=== PATIENT | female | born 1950 | race Caucasian/White ===

== ENCOUNTER 2018-08-29 09:50 | Inpatient (IN) | payer OTHER ==
[~2018-08-29] VITALS: Ht 167.6 cm; Wt 56.1 kg
[~2018-08-29 09:50] MED LIST: ACID REDUCER 1150 MG PO; ADIPEX; ASPI325 PO; ATOR10 PO; Adipex-P37.5 M1 PO; Adipex-P37.5 MG PO; CHOL10002 PO; CLOP75 PO; CYCL10 PO; ERGO400 PO; FLUO10 PO; GLIP5ER PO; HYDACE5 PO; LETR2.5 PO; LISI10 PO; LISI5 PO; LORA1 PO; METF500 PO; METO10 PO; Motion Sickness25 M1 PO; NAPR220 PO; NITR100 PO; Omeprazole20 M1 PO; PANT40 PO; PRED20 PO; RXCYCL10 PO; SITA100T2 PO; SPIR50 PO; VIIBRYD10 MG PO
[2018-08-29] MEDS ORDERED: METF500C PO (10:29)
[2018-08-29] MEDS ORDERED: SPIR25 PO (10:29)
[2018-08-29] MEDS ORDERED: CLOP75 PO (10:29)
[2018-08-29] MEDS ORDERED: CHOL10002 PO (10:30)
[2018-08-29] MEDS ORDERED: LETR2.5 PO (10:30)
[2018-08-29] MEDS ORDERED: PANT40 PO (10:30)
[2018-08-29] MEDS ORDERED: TYLENOL325 MG PO (10:31)
[2018-08-29 11:08] LABS: BASOPHILS ABSOLUTE AUTO 0.06 K/mm3 (0.00-0.23); BASOPHILS PERCENT AUTO 0 % (0-2); EOSINOPHILS ABSOLUTE AUTO 0.11 K/mm3 (0.00-0.68); EOSINOPHILS PERCENT AUTO 1 % (0-6); Hemoglobin 13.7 g/dL (11.5-16.0); IMMATURE GRAN ABSOLUTE AUTO 0.08 K/mm3 (0.00-0.10); IMMATURE GRAN PERCENT AUTO 1 % (0-1); LYMPHOCYTES ABSOLUTE AUTO 1.83 K/mm3 (0.84-5.20); LYMPHOCYTES PERCENT AUTO 11 % (21-46); MONOCYTES ABSOLUTE AUTO 1.13 K/mm3 (0.16-1.47); MONOCYTES PERCENT AUTO 7 % (4-13); Mean Corpuscular HGB Conc 32.6 g/dL (31.5-36.5); Mean Corpuscular Volume 92 fL (80-100); Mean Platelet Volume 10.1 fL (9.1-12.4); NEUTROPHILS ABSOLUTE AUTO 12.89 K/mm3 (1.96-9.15); NEUTROPHILS PERCENT AUTO 80 % (41-73); Platelet Count 276 K/mm3 (150-400); RDW Coefficient Variation 13.4 % (11.7-14.2); RDW Standard Deviation 45.5 fL (35.1-46.3); Red Blood Cell Count 4.57 M/mm3 (3.80-5.20)
[2018-08-29 11:19] LABS: Alanine Aminotransfer (ALT/SGP 35 U/L (12-78); Albumin/Globulin Ratio 0.8 (0.8-1.8); Alk Phos 87 U/L (50-136); Anion Gap 9 mmol/L (6-16); Aspartate Aminotrans (AST/SGOT 30 U/L (12-37); Bilirubin, Total 0.4 mg/dL (0.1-1.0); Blood Urea Nitrogen 36 mg/dL (8-24); CO2, Blood 20 mmol/L (21-32); Calcium, Blood 9.6 mg/dL (8.5-10.1); Chloride, Blood 104 mmol/L (98-108); Creatinine, Blood 0.97 mg/dL (0.40-1.00); Glomerular Filtration Rate >60 (60-); Glucose, Blood 90 mg/dL (70-99); Potassium, Blood 4.5 mmol/L (3.5-5.5); Sodium, Blood 133 mmol/L (136-145)
[2018-08-29 11:58] LABS: Source, Urine Clean Catch
[2018-08-29 12:08] LABS: Appearance, Urine Bloody (Clear); Bilirubin, Urine Neg (Neg); Blood, Urine 4+ (Neg); Color, Urine Red (P-Yellow); Glucose Qualitative, Urine Neg (Neg); Ketones, Urine 1+ (Neg); Nitrite, Urine Neg (Neg); Protein, Urine 4+ (Neg); Specific Gravity, Urine 1.015 (1.003-1.022); Urobilinogen, Urine NORM (Normal)
[2018-08-29 12:31] LABS: Leukocyte Esterase, Urine 3+ (Neg)
[2018-08-29 12:32] LABS: Bacteria Many /hpf; Red Blood Cells, Urine TNTC /hpf (0-2); Squamous Epithelial Cells Few /hpf (Few); White Blood Cells, Urine TNTC /hpf (0-5)
--- NOTE | 2018-08-29 18:43 | NUR ---
SHIFT SUMMARY PATIENT IS NONAMBULATORY AND NONVERBAL. SHE CANNOT USE HER CALL BUTTON AND NEEDS FREQUENT ROUNDING. SHE IS A FULL CODE AND HAS BLOOD DRAINING FROM HER URINE. CT OF HER ABDOMEN WAS NEGATIVE, AND WILL ASSESS FOR ANY CHANGES. THEY HAVE PLACED HER ON GENATMYCIN AND FLUIDS TO RULE OUT SEPSIS, HER WHITE COUNT IS MILDLY ELEVATED.
[2018-08-29 21:28] LABS: Gentamicin, Peak 27.1 ug/mL (4.0-8.0)
[2018-08-30 04:55] LABS: BASOPHILS ABSOLUTE AUTO 0.04 K/mm3 (0.00-0.23); BASOPHILS PERCENT AUTO 0 % (0-2); EOSINOPHILS PERCENT AUTO 1 % (0-6); Hematocrit 37.6 % (33.0-51.0); IMMATURE GRAN ABSOLUTE AUTO 0.08 K/mm3 (0.00-0.10); IMMATURE GRAN PERCENT AUTO 1 % (0-1); LYMPHOCYTES ABSOLUTE AUTO 1.79 K/mm3 (0.84-5.20); LYMPHOCYTES PERCENT AUTO 20 % (21-46); MONOCYTES ABSOLUTE AUTO 0.84 K/mm3 (0.16-1.47); MONOCYTES PERCENT AUTO 9 % (4-13); Mean Corpuscular HGB 29.5 pg (26.0-34.0); Mean Corpuscular HGB Conc 31.9 g/dL (31.5-36.5); Mean Corpuscular Volume 92 fL (80-100); Mean Platelet Volume 10.2 fL (9.1-12.4); NEUTROPHILS PERCENT AUTO 69 % (41-73); Platelet Count 225 K/mm3 (150-400); RDW Coefficient Variation 13.3 % (11.7-14.2); RDW Standard Deviation 45.1 fL (35.1-46.3); Red Blood Cell Count 4.07 M/mm3 (3.80-5.20); White Blood Cell Count 9.15 K/mm3 (4.00-11.30)
[2018-08-30 05:16] LABS: Anion Gap 9 mmol/L (6-16); Blood Urea Nitrogen 24 mg/dL (8-24); Bun/Creatinine Ratio 26.5 (12.0-20.0); CO2, Blood 23 mmol/L (21-32); Calcium, Blood 9.2 mg/dL (8.5-10.1); Chloride, Blood 106 mmol/L (98-108); Creatinine, Blood 0.91 mg/dL (0.40-1.00); Glomerular Filtration Rate >60 (60-); Glucose, Blood 119 mg/dL (70-99); Potassium, Blood 3.8 mmol/L (3.5-5.5); Sodium, Blood 138 mmol/L (136-145)
--- NOTE | 2018-08-30 08:12 | NUR ---
*SHIFT SUMMARY* PATIENT NODS YES AND NO TO QUESTIONS. PATIENT NODDED NO TO HAVING PAIN. PATIENT REPOSITIONED THROUGHOUT THE NIGHT. ALBARADO DRAINING, RED URINE. INCONTINENT OF STOOL. VITAL SIGNS STABLE. BED LOWERED AND LOCKED WITH CALL LIGHT IN REACH.
--- NOTE | 2018-08-30 16:36 | NUR ---
PATIENT CARE PERMISSION PATIENT NODDED YES WHEN ASKED IF I COULD PROVIDE CARE FOR HER TOMORROW AND ACCESS HER CHART
--- NOTE | 2018-08-30 16:37 | NUR ---
Visit with patient she denie headaches, minimal pain and aching to back, pt anseres questions but drifts off and stares. she has hiccups and states having them more and more intensity. advised nursing and physician. Nursing states pt refusing most things. pt states no appetite. opened her window to see the snow she enjoyed the experience. pt nusre states son is primaryliy involved in her care the daughter helps. will contact daughter for polst and plan of care.
--- NOTE | 2018-08-30 17:24 | NUR ---
SHIFT SUMMARY NO ACUTE CONCERNS FOR PATIENT AT THIS TIME. BLOOD STILL DRAINING IN THE CATHETER. PATIENTS ALBARADO IS PATENT AT THIS TIME. WE AHVE PRN BLADDER SCAN ORDERS FOR THE PATIENT TO ASSESS FOR PATENCY OF THE ALBARADO.
--- NOTE | 2018-08-30 22:40 | NUR ---
PATIENT COMPLAINING OF 10/10 PAIN IN HER ABDOMEN/BLADDER AREA. PATIENT IS RESTLESS IN BED, TURNING FROM ONE SIDE OF BED TO THE OTHER. PATIENT HAS STOOL ON HER HAND. LISSETT AND THIS NURSE STARTED [facility]. IT WAS THEN NOTED THAT THE PATIENTS BRIEF HAD A MODERATE AMOUNT OF BLOOD THAT APPEARED TO BE COMING FROM PATIENTS VAGINA. IT WAS A STEADY TRICKLE OF LISETH RED BLOOD, THERE WAS ALSO CLOTS IN THE BRIEF OF DARK BLOOD. PATIENT HAD A LARGE SOFT BOWEL MOVEMENT WELL THAT DID NOT APPEAR TO HAVE BLOOD IN IT. LISSETT REPORTED TO ME AT THIS TIME THAT SHE HAD JUST PREVIOUSLY DRAINED PATIENT'S ALBARADO CATHETER THAT HAD 800ML OF CRANBERRY COLORED BLOOD. THIS RN CALLED HOSPITALIST AND RECIEVED AN ORDER FOR ONE TIME DOSE OF PEPCID IV, WELL A STAT H&H. HOSPITALIST REQUESTED TO BE NOTIFIED OF RESULTS OF H&H TO DECIDE FURTHER TREATMENT.
[2018-08-30 23:40] LABS: Hematocrit 36.1 % (33.0-51.0); Hemoglobin 11.8 g/dL (11.5-16.0)
--- NOTE | 2018-08-31 | NUR ---
PATIENT MEDICATED ORDERED AND LABS DRAWN. PATIENT IS STILL COMPLAINING OF 10/10 PAIN. CHECKED PATIENT'S BRIEF AND THE PAD IS SATURATED IN BOTH LISETH RED AND DARK CLOTS OF BLOOD. H&H RESULTS ARE BACK. CALLED HOSPITALIST AND UPDATED HIM ON PATIENT'S CURRENT STATUS. AT THIS TIME THE HOSPITALIST ORDERED FENTANYL ONE TIME. HE WANTS NURSING STAFF TO CHECK FOR SIGNS OF ALLERGIC REACTION TO THIS MEDICINE SINCE PT HAS A LOT OF MEDICATION ALLERGIES. IF NO ALLERGIC REACTION IS NOTED WE CAN CALL AND RECIEVE AN ORDER FOR PRN DOSING.
--- NOTE | 2018-08-31 02:02 | NUR ---
PATIENT'S ALBARADO CATHETER WAS NOT SHOWING MUCH DRAINAGE. THIS RN REQUESTED FLAT SHEET MAKER TO BLADDER SCAN PATIENT. FLAT SHEET MAKER REPORTED FLAT SHEET MAKER HAD 725ML IN BLADDER. THIS RN CALLED HOSPITALIST AGAIN TO NOTIFY CURRENT STATUS. AT 0115 NEW ORDER FOR 3-WAY CATHETER RECIEVED AND INTERMITTEN IRRIGATION. 18FR 3-WAY CATH PLACED, IRRIGATED ALBARADO WITH 40ML OF NS. CATHETER DRAINING WHAT APPEARS TO BE DARK VELA RED BLOOD. 950MLS OF URINE HAVE BEEN DRAINED WITHIN 15MINS OF CATHETER INSERTION. PATIENT STATES PAIN HAS DECREASED SOME. FACIAL REDNESS HAS DECREASED.
--- NOTE | 2018-08-31 02:25 | NUR ---
INSERTED 3-WAY ALBARADO SIZE 18FR. ASSISTED BY CHARGE NURSE REAL Yun REMOVED PREVIOUS ALBARADO, CATH INTACT UPON REMOVAL.
[2018-08-31 04:59] LABS: BASOPHILS ABSOLUTE AUTO 0.04 K/mm3 (0.00-0.23); BASOPHILS PERCENT AUTO 0 % (0-2); EOSINOPHILS ABSOLUTE AUTO 0.04 K/mm3 (0.00-0.68); EOSINOPHILS PERCENT AUTO 0 % (0-6); Hematocrit 32.1 % (33.0-51.0); IMMATURE GRAN ABSOLUTE AUTO 0.13 K/mm3 (0.00-0.10); IMMATURE GRAN PERCENT AUTO 1 % (0-1); LYMPHOCYTES ABSOLUTE AUTO 1.14 K/mm3 (0.84-5.20); LYMPHOCYTES PERCENT AUTO 6 % (21-46); MONOCYTES ABSOLUTE AUTO 1.19 K/mm3 (0.16-1.47); MONOCYTES PERCENT AUTO 7 % (4-13); Mean Corpuscular HGB 29.2 pg (26.0-34.0); Mean Corpuscular HGB Conc 31.2 g/dL (31.5-36.5); Mean Corpuscular Volume 94 fL (80-100); Mean Platelet Volume 10.2 fL (9.1-12.4); NEUTROPHILS ABSOLUTE AUTO 15.57 K/mm3 (1.96-9.15); NEUTROPHILS PERCENT AUTO 86 % (41-73); Platelet Count 220 K/mm3 (150-400); RDW Coefficient Variation 13.5 % (11.7-14.2); RDW Standard Deviation 46.5 fL (35.1-46.3); Red Blood Cell Count 3.42 M/mm3 (3.80-5.20); White Blood Cell Count 18.11 K/mm3 (4.00-11.30)
[2018-08-31 05:11] LABS: Anion Gap 10 mmol/L (6-16); Blood Urea Nitrogen 19 mg/dL (8-24); Bun/Creatinine Ratio 23.5 (12.0-20.0); CO2, Blood 19 mmol/L (21-32); Calcium, Blood 8.6 mg/dL (8.5-10.1); Chloride, Blood 111 mmol/L (98-108); Creatinine, Blood 0.81 mg/dL (0.40-1.00); Glomerular Filtration Rate >60 (60-); Glucose, Blood 302 mg/dL (70-99); Potassium, Blood 4.7 mmol/L (3.5-5.5); Sodium, Blood 140 mmol/L (136-145)
--- NOTE | 2018-08-31 05:14 | NUR ---
*SHIFT SUMMARY* PATIENT HAS BEEN ALERT DURING SHIFT AND ANSWERING QUESTIONS APPROPRIATELY. INSERTED A 3-WAY CATHETER AND REMOVED PREVIOUS ALBARADO, SEE PREVIOUS NOTES FOR MORE DETAILS. PAIN HAS DECREASED FROM FENTANYL. ON ROOM AIR. CALL LIGHT IN REACH, BED LOWERED AND LOCKED. VITAL SIGNS WERE STABLE OTHER THAN BLOOD PRESSURE WAS ELEVATED AT 0211, COULD BE FROM THE PAIN IN BLADDER FROM 725ML OF URINE IN BLADDER. BLOOD PRESSURE RECHECK HAS LOWERED. CALLED HOSPITALIST AT 0530 TO INFORM ABOUT THE CURRENT STATUS OF THE DARK VELA RED BLOOD STILL DRAINING FROM BLADDER AND THAT PATIENT'S PAIN IS INCREASING AGAIN. NO NEW ORDERS OBTAINED.
--- NOTE | 2018-08-31 11:53 | NUR ---
Patient has given me permission to help with her care tomorrow (09/01/18).
[2018-08-31 13:15] LABS: Hematocrit 31.3 % (33.0-51.0)
[2018-08-31 14:37] LABS: Gentamicin, Random 0.5 ug/Ml
--- NOTE | 2018-08-31 14:42 | NUR ---
Palliative Care visit: Reviewed EMR and checked in with RN for current clinical update. Pt admitted for acute hemorrhagic cystitis. RN states pt was complaining of lower abd pain this am but after bladder irrigation and flush of blood and clots decreased pain reported. Currently pt's jay cath is set up to cont. irrig and jay drainage bag with light pink urine noted. Assessed pt for s/s. She denies pain. I did not note any nonverbal indicators of pain, anxiety, agitation or distress. Pt is confused. She knows her name but reports to me, "I had my appendix taken out today". Opened pt's blinds and positioned tv so she could look at it after asking her if she would like me to and received afirmative answer. Pt enjoyed view of beautiful xavi day outside. I attempted to call pt's son and left VM with request for return call to touch bases regarding his mom's care. Would like to review code status and complete a POLST if he is interested in doing that. Will try again tomorrow if no return call received.
--- NOTE | 2018-08-31 17:47 | NUR ---
SHIFT SUMMARY TODAY THIS PATIENT ALBARADO WAS NOT DRAINING. THIS RN WITH THE HELP OF DENIZ WASHBURN, MARKETING LEAD MANUALLY IRRIGATED BLADDER. SPOKE WITH PHYSICIAN WHO REQUESTED TO PLACE A LARGER ALBARADO AND START IRRIGATION. PATIENT REQUIRED ADDITIONAL MANUAL IRRIGATION AFTER NEW ALBARADO PLACED. NOW SUCCESSFULLY DRAINING WITH BLADDER IRRIGATION. AT THIS TIME I&O NOT ACCURATE DUE TO THE CONTINUOUS MANUAL IRRIGATION FOLLOWED BY IRRIGATION OCCURRING. WILL CONTINUE TO MONITOR AND KEEP STRICT I&O THIS PROCESS IS WORKING.
[2018-08-31 20:17] LABS: Hematocrit 28.8 % (33.0-51.0); Hemoglobin 9.4 g/dL (11.5-16.0)
[2018-09-01 04:47] LABS: BASOPHILS ABSOLUTE AUTO 0.04 K/mm3 (0.00-0.23); BASOPHILS PERCENT AUTO 0 % (0-2); EOSINOPHILS PERCENT AUTO 1 % (0-6); Hematocrit 27.3 % (33.0-51.0); Hemoglobin 8.5 g/dL (11.5-16.0); IMMATURE GRAN ABSOLUTE AUTO 0.06 K/mm3 (0.00-0.10); IMMATURE GRAN PERCENT AUTO 1 % (0-1); LYMPHOCYTES ABSOLUTE AUTO 1.87 K/mm3 (0.84-5.20); LYMPHOCYTES PERCENT AUTO 21 % (21-46); MONOCYTES ABSOLUTE AUTO 0.69 K/mm3 (0.16-1.47); MONOCYTES PERCENT AUTO 8 % (4-13); Mean Corpuscular HGB 29.5 pg (26.0-34.0); Mean Corpuscular HGB Conc 31.1 g/dL (31.5-36.5); Mean Corpuscular Volume 95 fL (80-100); Mean Platelet Volume 9.9 fL (9.1-12.4); NEUTROPHILS ABSOLUTE AUTO 6.36 K/mm3 (1.96-9.15); NEUTROPHILS PERCENT AUTO 70 % (41-73); Platelet Count 183 K/mm3 (150-400); RDW Coefficient Variation 13.6 % (11.7-14.2); RDW Standard Deviation 46.7 fL (35.1-46.3); Red Blood Cell Count 2.88 M/mm3 (3.80-5.20); White Blood Cell Count 9.12 K/mm3 (4.00-11.30)
[2018-09-01 05:13] LABS: Anion Gap 6 mmol/L (6-16); Blood Urea Nitrogen 8 mg/dL (8-24); Bun/Creatinine Ratio 11.4 (12.0-20.0); CO2, Blood 24 mmol/L (21-32); Calcium, Blood 9.3 mg/dL (8.5-10.1); Chloride, Blood 112 mmol/L (98-108); Glomerular Filtration Rate >60 (60-); Glucose, Blood 154 mg/dL (70-99); Potassium, Blood 4.2 mmol/L (3.5-5.5); Sodium, Blood 142 mmol/L (136-145)
--- NOTE | 2018-09-01 06:12 | NUR ---
*SHIFT SUMMARY* PATIENT IS ALERT AND TALKING TO STAFF. NO COMPLAINTS OF PAIN THROUGHOUT SHIFT. CBI GOING. URINE IS NOW PINKISH-YELLOW. PATIENT CONTINUED TO ATTEMPT TO GET OUT OF BED AT BEGINING OF SHIFT. ORDER OBTAINED FOR YAHAIRA PALACIOS FOR PATIENT'S SAFETY. PATIENT'S HEMOGLOBIN HAS DECREASED SINCE LAST LAB DRAW. VITAL SIGNS ARE STABLE. CALL LIGHT IN REACH, PATIENT USES AT TIMES. BED LOWERED AND LOCKED.
--- NOTE | 2018-09-01 08:52 | NUR ---
STOPPED CBI PER DR. MAYA. CURRENTLY PATIENT URINE IS LIGHT YELLOW IN COLOR.
[2018-09-01 10:36] LABS: Gentamicin, Random 3.5 ug/Ml
--- NOTE | 2018-09-02 04:24 | NUR ---
SHIFT SUMMARY PATIENT HAD NO ACUTE CHANGES OBSERVED THIS SHIFT. AXO SELF/FAMILY AND BEDFAST. TAKES MEDS WHOLE WITH APPLE SAUCE. CBG 201. PIV REMAINS INTACT. YAHAIRA VEST RENEWED FOR TRYING TO EXIT BED AND FALL RISK. ALBARADO IS PATENT AND DRAING. VSS/AFEBRILE. DENIES PAIN, SOB, AND N/V. CALL LIGHT IN REACH. BED ALARM ACTIVATED. WILL CONTINUE TO MONITOR UNTIL DAY SHIFT NURSE ASSUMES CARE.
[2018-09-02 05:00] LABS: BASOPHILS ABSOLUTE AUTO 0.03 K/mm3 (0.00-0.23); BASOPHILS PERCENT AUTO 0 % (0-2); EOSINOPHILS ABSOLUTE AUTO 0.12 K/mm3 (0.00-0.68); EOSINOPHILS PERCENT AUTO 1 % (0-6); Hematocrit 27.2 % (33.0-51.0); Hemoglobin 8.8 g/dL (11.5-16.0); IMMATURE GRAN PERCENT AUTO 1 % (0-1); LYMPHOCYTES ABSOLUTE AUTO 1.64 K/mm3 (0.84-5.20); LYMPHOCYTES PERCENT AUTO 15 % (21-46); MONOCYTES ABSOLUTE AUTO 0.67 K/mm3 (0.16-1.47); MONOCYTES PERCENT AUTO 6 % (4-13); Mean Corpuscular HGB 29.6 pg (26.0-34.0); Mean Corpuscular HGB Conc 32.4 g/dL (31.5-36.5); Mean Platelet Volume 9.8 fL (9.1-12.4); NEUTROPHILS ABSOLUTE AUTO 8.34 K/mm3 (1.96-9.15); NEUTROPHILS PERCENT AUTO 77 % (41-73); Platelet Count 207 K/mm3 (150-400); RDW Coefficient Variation 13.8 % (11.7-14.2); RDW Standard Deviation 46.5 fL (35.1-46.3); Red Blood Cell Count 2.97 M/mm3 (3.80-5.20)
[2018-09-02 05:02] LABS: Mean Corpuscular Volume 92 fL (80-100)
--- NOTE | 2018-09-02 10:56 | NUR ---
Patient gave permission to help with care and access to chart on 09/01/2018.
--- NOTE | 2018-09-02 13:19 | NUR ---
Patient gave permission for care
[2018-09-02] MEDS ORDERED: BISA10S PR (15:07)
[2018-09-02] MEDS ORDERED: FLUC100 PO (15:07)
[2018-09-02] MEDS ORDERED: ONDA4ODT MM (15:07)
[2018-09-02] MEDS ORDERED: DOCU100 PO (15:07)
[2018-09-02] MEDS ORDERED: SACC250C PO (15:08)
[2018-09-02] MEDS ORDERED: DOXY100 PO (15:08)
--- NOTE | 2018-09-02 15:39 | NUR ---
PT DISCHARGED HOME TO [facility]. [facility] TRANSPORTED THE PT FROM THE HOSPITAL ROOM TO HOME.
--- NOTE | 2018-09-02 16:09 | NUR ---
DAUGHTER AND [facility] NOTIFIED OF DISCHARGE, COPY OF D/C ORDERS SENT WITH PT. PT DC'D VIA [employer] W/C TO [facility]. RX FAXED TO [facility].
== END 2018-09-02 15:30 | disposition home or self-care (01) | DRG 690 ==
LOC: ER 09:50 → ERHOLD 15:09 → MEDS 15:09 → ENPENDDIS 09-02 13:19 → MEDS 09-02 15:30
PROVIDERS: Nurse Practitioner Acute Care; Physician Assistant; ADMIT Family Medicine
DX: N30.01 Acute cystitis with hematuria (principal); I69.954 Hemiplegia and hemiparesis following unspecified cerebrovascular disease affecting left non-dominant side; E11.43 Type 2 diabetes mellitus with diabetic autonomic (poly)neuropathy; K31.84 Gastroparesis; K44.9 Diaphragmatic hernia without obstruction or gangrene; E78.5 Hyperlipidemia, unspecified; I10 Essential (primary) hypertension; K21.9 Gastro-esophageal reflux disease without esophagitis; F03.90 Unspecified dementia, unspecified severity, without behavioral disturbance, psychotic disturbance, mood disturbance, and anxiety; Z87.891 Personal history of nicotine dependence; Z85.3 Personal history of malignant neoplasm of breast; Z88.1 Allergy status to other antibiotic agents; Z88.0 Allergy status to penicillin; Z88.8 Allergy status to other drugs, medicaments and biological substances; Z88.5 Allergy status to narcotic agent; Z79.84 Long term (current) use of oral hypoglycemic drugs; Z79.02 Long term (current) use of antithrombotics/antiplatelets; Z79.82 Long term (current) use of aspirin; Z79.899 Other long term (current) drug therapy
CPT/HCPCS: 36415; 51702; 74177; 80048; 80053; 80170; 81001; 82947; 83605; 85014; 85018; 85025; 86850; 86900; 86901; 87040; 87077; 87086; 87186; 96365-59; 99285-25; J0696; J1200; J1580; J3010; J7030; Q9967

== ENCOUNTER → 2019-10-29 | Outpatient (CLI) | payer OTHER ==
[~2019-10-29] MED LIST changes: +BISA10S PR; +DOCU100 PO; +DOXY100 PO; +FLUC100 PO; +METF500C PO; +ONDA4ODT MM; +SACC250C PO; +SPIR25 PO; +TYLENOL325 MG PO
[2019-10-29 16:57] LABS: Hematocrit 34.7 % (33.0-51.0); Hemoglobin 10.6 g/dL (11.5-16.0); Mean Corpuscular HGB 24.5 pg (26.0-34.0); Mean Corpuscular HGB Conc 30.5 g/dL (31.5-36.5); Mean Corpuscular Volume 80 fL (80-100); Platelet Count 428 K/mm3 (150-400); RDW Coefficient Variation 18.7 % (11.7-14.2); RDW Standard Deviation 54.4 fL (35.1-46.3); Red Blood Cell Count 4.33 M/mm3 (3.80-5.20)
[2019-10-29 17:09] LABS: Alanine Aminotransfer (ALT/SGP 22 U/L (12-78); Albumin, Blood 2.9 g/dL (3.4-5.0); Albumin/Globulin Ratio 0.7 (0.8-1.8); Alk Phos 79 U/L (50-136); Anion Gap 7 mmol/L (6-16); Aspartate Aminotrans (AST/SGOT 16 U/L (12-37); Bilirubin, Total 0.2 mg/dL (0.1-1.0); Blood Urea Nitrogen 31 mg/dL (8-24); Bun/Creatinine Ratio 39.8 (12.0-20.0); CO2, Blood 24 mmol/L (21-32); Calcium, Blood 9.6 mg/dL (8.5-10.1); Chloride, Blood 106 mmol/L (98-108); Creatinine, Blood 0.78 mg/dL (0.40-1.00); Globulin, Blood 4.4 g/dL (2.2-4.0); Glomerular Filtration Rate >60 (60-); Glucose, Blood 195 mg/dL (70-99); Potassium, Blood 4.8 mmol/L (3.5-5.5); Sodium, Blood 137 mmol/L (136-145); Total Protein, Blood 7.3 g/dL (6.4-8.2)
== END | disposition home or self-care (01) ==
LOC: LAB SHORT 14:30 → LAB 14:30
PROVIDERS: Family Medicine
DX: I69.354 Hemiplegia and hemiparesis following cerebral infarction affecting left non-dominant side (principal); E11.43 Type 2 diabetes mellitus with diabetic autonomic (poly)neuropathy
CPT/HCPCS: 80053; 83036; 85027